=== PATIENT | female | born 1995 | race Hispanic/Latino ===

== ENCOUNTER 2017-07-16 02:12 | Emergency (ER) | payer OTHER ==
[~2017-07-16] VITALS: Ht 152.4 cm; Wt 45.5 kg
[2017-07-16 02:16] VITALS: BP 114/79; PULSE 110; RESP 12; O2SAT 100
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
[2017-07-16] MEDS ORDERED: Ondansetron 8 mg ODT Tablet ONE (04:08)
[2017-07-16] MEDS ORDERED: Tissue Adhesive Liq (CS Supplied) TOPICAL ONE (04:20)
[2017-07-16 06:50] VITALS: BP 110/76; PULSE 102; RESP 16; O2SAT 96
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
== END 2017-07-16 05:54 | disposition home or self-care (01) ==
LOC: SED 02:12
DX: S00.83XA Contusion of other part of head, initial encounter (principal); S01.111A Laceration without foreign body of right eyelid and periocular area, initial encounter; W22.8XXA Striking against or struck by other objects, initial encounter; V43.02XA Car driver injured in collision with other type car in nontraffic accident, initial encounter; Y93.89 Activity, other specified; Y92.481 Parking lot as the place of occurrence of the external cause; Y99.8 Other external cause status